=== PATIENT | female | born 1995 | race Two or more races ===

== ENCOUNTER 2017-10-21 16:02 | Emergency (ER) | payer BC ==
[~2017-10-21] VITALS: Ht 157.5 cm; Wt 94.9 kg
[2017-10-21 16:44] LABS: HEMATOCRIT 39.2 % (36.0-46.0); HEMOGLOBIN 12.6 G/DL (11.9-15.5); MCH 25.6 PG (29.0-34.0); MCHC 32.1 G/DL (30.0-36.0); MCV 79.5 FL (83-99); PLATELET COUNT 411 K/uL (156-360); RBC DIS.WIDTH-SD 40.4 % (39-53); RED BLOOD COUNT 4.93 M/uL (3.80-5.20); WHITE BLOOD COUNT 10.5 K/uL (4.1-10.2)
[2017-10-21 16:52] LABS: CHLORIDE 105 mEq/L (99-109); POTASSIUM 4.1 mEq/L (3.7-5.4); SODIUM 140 mEq/L (136-147)
[2017-10-21 16:54] LABS: GLUCOSE 109 mg/dL (70-99)
[2017-10-21 16:58] LABS: CREATININE 0.7 mg/dL (0.6-1.3); GFR ESTIMATE (CALCULATED) > 59 mL/min/
[2017-10-21 16:59] LABS: UREA NITROGEN (BUN) 15 mg/dL (9-23)
[2017-10-21 17:06] LABS: QUANTITATIVE HCG < 4.0 MIU/ML
[2017-10-21 17:29] LABS: C4 COMPLEMENT 43 MG/DL (10-40)
[2017-10-21 17:42] LABS: C-REACTIVE PROTEIN 20.7 MG/L (0-10)
[2017-10-21 18:02] LABS: ERTH.SED.RATE 71 MM/HR (0-20)
[2017-10-21] MEDS ORDERED: PREDNISONE20 MG PO (18:06)
[2017-10-21 18:15] VITALS: BP 135/110
== END 2017-10-21 18:15 | disposition home or self-care (01) ==
LOC: EME 16:02
PROVIDERS: Physician Assistant
DX: M25.562 Pain in left knee (principal); M25.561 Pain in right knee; M25.572 Pain in left ankle and joints of left foot; M25.571 Pain in right ankle and joints of right foot; M25.542 Pain in joints of left hand; M25.541 Pain in joints of right hand; M25.532 Pain in left wrist; M25.531 Pain in right wrist; Z79.3 Long term (current) use of hormonal contraceptives; Z98.890 Other specified postprocedural states; Z88.5 Allergy status to narcotic agent
CPT/HCPCS: 80048; 81003; 84702; 85027; 85651; 86038; 86060 90; 86140; 86160; 86235; 99281; 99283; J7512